=== PATIENT | female | born 1970 | race Hispanic/Latino ===

== ENCOUNTER 2022-06-27 15:46 | Emergency (ER) | payer MEDICAID ==
[~2022-06-27] VITALS: Ht 162.6 cm; Wt 86.2 kg
[2022-06-27] MEDS ORDERED: AMOX1TAB16 PO (17:24)
[2022-06-27 17:31] VITALS: BP 135/99
== END 2022-06-27 17:36 | disposition home or self-care (01) ==
LOC: EDH 15:46
DX: J02.0 Streptococcal pharyngitis (principal); I10 Essential (primary) hypertension; J45.909 Unspecified asthma, uncomplicated; E11.9 Type 2 diabetes mellitus without complications; Z20.822 Contact with and (suspected) exposure to COVID-19; Z90.49 Acquired absence of other specified parts of digestive tract; Z98.890 Other specified postprocedural states
CPT/HCPCS: 99284; 71046; 87635; 87880; 87804 ×2; C9803

== ENCOUNTER 2022-07-02 16:02 | Emergency (ER) | payer MEDICAID ==
[~2022-07-02] VITALS: Ht 162.6 cm; Wt 86.2 kg
[~2022-07-02 16:02] MED LIST: AMOX1TAB16 PO
[2022-07-02 18:00] LABS: BASOPHILS % (AUTO) 0.6 % (0.0-5.0); EOSINOPHILS % (AUTO) 0.8 % (0.0-8.0); HEMATOCRIT 37.2 % (36-48); LYMPHOCYTES % (AUTO) 20.6 % (21.0-51.0); MEAN CORPUSCULAR HEMOGLOBIN 28.2 pg (27.0-33.0); MEAN CORPUSCULAR HGB CONC 33.1 g/dL (32.0-36.0); MEAN CORPUSCULAR VOLUME 85.3 fL (79-99); NEUTROPHILS % (AUTO) 71.6 % (40.0-77.0); PLATELET COUNT (AUTO) 362 K/uL (130-400); RED BLOOD CELL COUNT(AUTO) 4.36 MIL/uL (4.00-5.50); WHITE BLOOD COUNT (AUTO) 10.9 K/uL (4.8-10.8)
[2022-07-02 18:12] LABS: ALBUMIN 4.1 g/dL (3.5-5.0); CREATININE 0.9 mg/dL (0.5-1.5); TOTAL PROTEIN, SERUM 8.7 g/dL (6.0-8.3)
[2022-07-02 18:15] LABS: POTASSIUM 2.8 mmol/L (3.5-5.1)
[2022-07-02] MEDS ORDERED: POTASSIUM BICARB/CIT AC 25 MEQ TABLET.EFF PO STA (18:28)
[2022-07-02] MEDS ORDERED: KETOROLAC 30MG VIAL (30MG/ML) IM STA (18:31)
[2022-07-02] MEDS ORDERED: CEPH500B PO (18:39)
[2022-07-02] MEDS ORDERED: KETO10TA2 PO (18:39)
[2022-07-02] MEDS ORDERED: TAMS-1 PO (18:39)
[2022-07-02 18:42] VITALS: BP 135/89
[2022-07-02 18:44] LABS: APPEARANCE,URINE CLEAR (CLEAR); BILIRUBIN,URINE NEGATIVE (NEGATIVE); COLOR,URINE LIGHT-YELLOW (YELLOW); GLUCOSE, URINE (UA) NEGATIVE (NEGATIVE); KETONES,URINE NEGATIVE (NEGATIVE); LEUKOCYTE ESTERASE ,URINE 25 Leu/uL (NEGATIVE); NITRATE,URINE NEGATIVE (NEGATIVE); OCCULT BLOOD,URINE NEGATIVE (NEGATIVE); PH,URINE 5.5 (5.0-8.0); PROTEIN,URINE NEGATIVE (NEGATIVE); UROBILINOGEN,URINE 0.2 mg/dL (0.2-1.0)
[2022-07-02 18:48] LABS: BACTERIA,URINE RARE /HPF (None Seen); MUCUS,URINE RARE LPF (None Seen); SQUAMOUS EPITHELIAL CELL,UR FEW /HPF (0-2)
== END 2022-07-02 18:47 | disposition left against medical advice (07) ==
LOC: EDH 16:02
DX: N20.0 Calculus of kidney (principal); J45.909 Unspecified asthma, uncomplicated; I10 Essential (primary) hypertension; E11.9 Type 2 diabetes mellitus without complications; Z90.49 Acquired absence of other specified parts of digestive tract
CPT/HCPCS: 99284; 74176; 80053; 83690; 85025; 81001; 36415; 96372; J1885

== ENCOUNTER 2023-04-04 11:29 | Emergency (ER) | payer MEDICAID ==
[~2023-04-04] VITALS: Ht 162.6 cm; Wt 76.2 kg
[~2023-04-04 11:29] MED LIST changes: +CEPH500B PO; +KETO10TA2 PO; +TAMS-1 PO
[2023-04-04] MEDS ORDERED: ONDANSETRON 4MG INJ IVP ONE (12:30)
[2023-04-04] MEDS ORDERED: KETOROLAC 30MG VIAL (30MG/ML) IVP ONE (12:30)
[2023-04-04] MEDS ORDERED: 0.9%NACL 1000ML 1,000 ML IV ONE (12:30)
[2023-04-04 12:48] LABS: BASOPHILS # (AUTO) 0.07 K/uL (0.00-0.20); BASOPHILS % (AUTO) 0.9 % (0.0-5.0); EOSINOPHILS # (AUTO) 0.14 K/uL (0.00-0.70); EOSINOPHILS % (AUTO) 1.8 % (0.0-8.0); HEMATOCRIT 36.6 % (36-48); IMMATURE GRANULOCYTE ABSOLUTE 0.02 K/uL (0-1); LYMPHOCYTES # (AUTO) 2.1 K/uL (1.0-4.8); LYMPHOCYTES % (AUTO) 27.1 % (21.0-51.0); MEAN CORPUSCULAR HEMOGLOBIN 28.5 pg (27.0-33.0); MEAN CORPUSCULAR HGB CONC 33.1 g/dL (32.0-36.0); MEAN CORPUSCULAR VOLUME 86.3 fL (79-99); MONOCYTES # (AUTO) 0.4 K/uL (0.1-1.0); NEUTROPHILS # (AUTO) 5.1 K/uL (1.8-7.7); NEUTROPHILS % (AUTO) 64.9 % (40.0-77.0); PLATELET COUNT (AUTO) 355 K/uL (130-400); RED BLOOD CELL COUNT(AUTO) 4.24 MIL/uL (4.00-5.50); WHITE BLOOD COUNT (AUTO) 7.8 K/uL (4.8-10.8)
[2023-04-04 12:56] LABS: CREATININE 0.7 mg/dL (0.5-1.5); POTASSIUM 3.7 mmol/L (3.5-5.1)
[2023-04-04 13:00] LABS: APPEARANCE,URINE CLEAR (CLEAR); BILIRUBIN,URINE NEGATIVE (NEGATIVE); COLOR,URINE YELLOW (YELLOW); GLUCOSE, URINE (UA) NEGATIVE (NEGATIVE); KETONES,URINE NEGATIVE (NEGATIVE); LEUKOCYTE ESTERASE ,URINE NEGATIVE Leu/uL (NEGATIVE); NITRATE,URINE NEGATIVE (NEGATIVE); OCCULT BLOOD,URINE NEGATIVE (NEGATIVE); PROTEIN,URINE NEGATIVE (NEGATIVE); UROBILINOGEN,URINE 0.2 mg/dL (0.2-1.0)
[2023-04-04 13:00] LABS: ALBUMIN 3.9 g/dL (3.5-5.0); BILIRUBIN,TOTAL 0.7 mg/dL (0.2-1.0); TOTAL PROTEIN, SERUM 8.5 g/dL (6.0-8.3)
[2023-04-04 13:10] LABS: ADD UA MICROSCOPIC NO
[2023-04-04 13:48] VITALS: BP 110/77; PULSE 72; RESP 16; O2SAT 100
== END 2023-04-04 14:19 | disposition home or self-care (01) ==
LOC: EDH 11:29
DX: N20.0 Calculus of kidney (principal); I10 Essential (primary) hypertension; E11.9 Type 2 diabetes mellitus without complications; J45.909 Unspecified asthma, uncomplicated; Z90.49 Acquired absence of other specified parts of digestive tract; Z79.899 Other long term (current) drug therapy; Z98.890 Other specified postprocedural states
CPT/HCPCS: 99285; 74176; 96374; 96361; 96375; 80053; 85025; 81003; 36415; J7030; J2405; J1885

== ENCOUNTER 2023-12-03 11:04 | Emergency (ER) | payer MEDICAID ==
[~2023-12-03] VITALS: Ht 162.6 cm; Wt 81.2 kg
[2023-12-03 11:45] VITALS: BP 163/88; PULSE 91; RESP 18; O2SAT 97
[2023-12-03] MEDS ORDERED: AMOX1TAB16 PO (12:48)
[2023-12-03] MEDS: DEXAMETHASONE SOD PHOSPHATE 4 MG/ML 1ML VIAL IM STA (12:48)
== END 2023-12-03 13:00 | disposition home or self-care (01) ==
LOC: EDH 11:04
DX: J02.0 Streptococcal pharyngitis (principal); F41.9 Anxiety disorder, unspecified; J45.909 Unspecified asthma, uncomplicated; E11.9 Type 2 diabetes mellitus without complications; E78.00 Pure hypercholesterolemia, unspecified; I10 Essential (primary) hypertension; Z90.49 Acquired absence of other specified parts of digestive tract; Z98.51 Tubal ligation status
CPT/HCPCS: 99283; 87880; 96372; J1100

== ENCOUNTER 2024-03-30 11:29 | Emergency (ER) | payer MEDICAID ==
[~2024-03-30] VITALS: Ht 162.6 cm; Wt 77.1 kg
[2024-03-30] MEDS: ketOROlac 60 MG VIAL (30MG/ML) IM ONE (13:20)
[2024-03-30 13:38] VITALS: BP 135/87; PULSE 78; RESP 20; TEMP 98.7; O2SAT 99
== END 2024-03-30 13:47 | disposition home or self-care (01) ==
LOC: EDH 11:29
DX: S40.012A Contusion of left shoulder, initial encounter (principal); E11.9 Type 2 diabetes mellitus without complications; E78.00 Pure hypercholesterolemia, unspecified; I10 Essential (primary) hypertension; J45.909 Unspecified asthma, uncomplicated; F41.9 Anxiety disorder, unspecified; Z90.49 Acquired absence of other specified parts of digestive tract; Z98.51 Tubal ligation status
CPT/HCPCS: 99284; 73060; 73030; 96372; J1885

== ENCOUNTER 2024-10-23 19:01 | Emergency (ER) | payer MEDICAID ==
[~2024-10-23] VITALS: Ht 167.6 cm; Wt 72.6 kg
[~2024-10-23 19:01] MED LIST changes: -TAMS-1 PO; +TAMS-55 PO
--- NOTE | 2024-10-23 19:12 | NUR ---
UA CUP PROVIDED
--- NOTE | 2024-10-23 19:33 | ERN ---
ED Note History of Present Illness Stated Complaint: HBP, HEAD PAIN,DIZZINESS Chief Complaint: Dizzy/Light Headed Time Seen by MD: 19:02 Time Seen by Midlevel: 19:02 Dictation: The patient is a 54-year-old female with a history of diabetes, hypertension, tubal ligation who presents to the emergency department with complaints of headache, dizziness onset a week ago. Patient also reports that she had a fever on Saturday but denies any more fevers, reports nausea but no vomiting, denies any cough, sore throat, ear pain, diarrhea, abdominal pain, head trauma or use of blood thinners. Allergies: Coded Allergies: No Known Allergies (Unverified Allergy, Unknown, 06/27/22) Home Meds Active Scripts Amoxicillin/Potassium Clav (Amox Tr-K Clv 875-125 mg Tab) 875 Mg-125 Mg Tablet, 1 EACH PO BID for 5 Days, #10 TAB Prov:MARYANN VU WIRE HANGER 12/03/23 Cephalexin Monohydrate (Keflex) 500 Mg Cap, 500 MG PO BID for 5 Days, #10 CAP Prov:CARIDAD STREET MD 07/02/22 Tamsulosin HCl (Flomax) 0.4 Mg Cap.er.24h, 0.4 MG PO DAILY for 5 Days, #5 CAPSULE.DR Prov:CARIDAD STRE[address] MD 07/02/22 Ketorolac Tromethamine (Ketorolac Tromethamine) 10 Mg Tablet, 10 MG PO TID for 5 Days, #15 TAB Prov:CARIDAD STREET MD 07/02/22 Amoxicillin/Potassium Clav (Amox Tr-K Clv 875-125 mg Tab) 1 Each Tablet, 1 EACH PO BID for 10 Days, #20 TAB Prov:NIC ZEPEDA V HOSTING ENGINEER 06/27/22 Past Medical History Past Medical History: Anxiety, Asthma, Diabetes-Type II, High Cholesterol, Hypertension Additional Past Medical Hx: 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, HX OF UTERINE CA Surgical History: Appendectomy, Cholecystectomy, Other, BTL Surgical History Other: VARICOSE VEINS, MAT VATS Family History: Negative Social History: Negative, Lives with family History: Not Applicable RN Note Reviewed/Agreed w/PFSH: Yes Review of System Dictation Constitutional: Negative for fever,chills, and weight loss Eyes: Negative for injury, pain,redness, and discharge ENT: Negative for injury,pain or swelling Cardiovascular: Negative for chest pain, palpitations, and edema Respiratory: Negative for shortness of breath, cough, and wheezing, Abdomen/GI: Negative for abdominal pain, nausea, vomiting, diarrhea, and constipation Back: Negative for injury and pain : Negative for injury, bleeding and discharge MS/Extremity: Negative for injury and deformity Skin: Negative for rash, and discoloration Neuro: Negative for weakness, numbness, tingling, and seizure positive for headache, dizziness Psych: Negative for suicide ideation, homicidal ideation, and hallucinations Initial Vital Sign VS Vital Signs Date Time Temp Pulse Resp B/P (MAP) Pulse Ox O2 Delivery O2 Flow Rate FiO2 10/23/24 19:02 98.4 86 20 162/100 98 Room Air 10/23/24 19:26 0 21 Physical Exam Dictation Vital Signs reviewed General Appearance: Alert, oriented x 3, no acute distress, well developed, nourished. Head and Face: non-traumatic. Eyes: PERRL, pink conjunctivas, eyelid no trauma, anterior chamber with arcus senilis. Ears: Pinnas intact and no signs of trauma or erythema ear canals clear and no discharge TM no erythema Nose: No discharge, no bleeding. Oropharynx: Mouth normal, tongue pink. pharynx clear,no erythema, tonsils no exudates, no abscesses noted, mucous membrane moist Neck: Supple, non-tender, no thyromegaly, no masses, no JVD, no bruits Breast:Deferred Chest:No tenderness, no crepitus, no paradoxical movement, no retractions Lungs:Clear, well-ventilated, symmetric, no rales, no wheezing, no rhonchi, no stridor, good breath sounds bilaterally Heart: Regular rate, regular rhythm, no murmur, no gallops Vascular: no peripheral edema, Abdomen: Soft, positive bowel sounds, nondistended, no guarding, nontender, no rebound, no masses no hepatomegaly, no splenomegaly, no Jane's sign, no hernias. Rectal: Deferred Genital: Deferred Neurological: Normal speech, motor function intact, sensory function intact , upper extremities equal in strength, lower extremities equal in strength Musculoskeletal: Neck nontender, full range of motion, back nontender, full range of motion, Extremities: nontender, full range of motion Skin: Color pink, dry, no turgor, no rash, no lacerations, no abrasions, no contusions. Lymphatic: Deferred Results (Laboratory/Radiology) Laboratory/Radiology Laboratory Tests Test 10/23/24 19:19 10/23/24 19:50 10/23/24 19:55 Urine Color YELLOW (YELLOW) Urine Appearance CLOUDY (CLEAR) H Urine pH 5.5 (5.0-8.0) Urine Specific [place] 1.027 (1.001-1.031) Urine Protein 20 mg/dL (NEGATIVE) H Urine Glucose (UA) NEGATIVE mg/dL (NEGATIVE) Urine Ketones NEGATIVE mg/dL (NEGATIVE) Urine Occult Blood NEGATIVE (NEGATIVE) Urine Nitrate NEGATIVE (NEGATIVE) Urine Bilirubin NEGATIVE mg/dL (NEGATIVE) Urine Urobilinogen 0.2 mg/dL (0.2-1.0) Urine Leukocyte Esterase 75 Gavin/uL (NEGATIVE) H Urine RBC 2-5 /HPF (0-1) H Urine WBC 11-25 /HPF (0-1) H Urine Squamous Epithelial Cells FEW /HPF (0-2) Urine Bacteria RARE /HPF (None Seen) Urine Hyaline Casts 2-5 /LPF (0-1 /LPF) H Influenza Type A Antigen Negative For Type A Influenza Type B Antigen Negative For Type B SARS-CoV-2 Antigen (Rapid) PRESUMPTIVE NEGATIVE White Blood Count 9.6 K/uL (4.8-10.8) Red Blood Count 4.17 MIL/uL (4.00-5.50) Hemoglobin 12.1 g/dL (12.0-16.0) Hematocrit 36.3 % (36-48) Mean Corpuscular Volume 87.1 fL (79-99) Mean Corpuscular Hemoglobin 29.0 pg (27.0-33.0) Mean Corpuscular Hemoglobin Concent 33.3 g/dL (32.0-36.0) Red Cell Distribution Width 14.6 % (11.0-15.5) Platelet Count 324 K/uL (130-400) Mean Platelet Volume 8.6 fL (7.5-10.5) Immature Granulocyte % (Auto) 0.3 % (0-1) Neutrophils (%) (Auto) 71.9 % (40.0-77.0) Lymphocytes (%) (Auto) 19.7 % (21.0-51.0) L Monocytes (%) (Auto) 6.7 % (3.0-13.0) Eosinophils (%) (Auto) 0.7 % (0.0-8.0) Basophils (%) (Auto) 0.7 % (0.0-5.0) Neutrophils # (Auto) 6.9 K/uL (1.8-7.7) Lymphocytes # (Auto) 1.9 K/uL (1.0-4.8) Monocytes # (Auto) 0.6 K/uL (0.1-1.0) Eosinophils # (Auto) 0.07 K/uL (0.00-0.70) Basophils # (Auto) 0.07 K/uL (0.00-0.20) Absolute Immature Granulocyte (auto 0.03 K/uL (0-1) Nucleated Red Blood Cells 0.0 % (0.0-0.19) Sodium Level 136 mmol/L (136-145) Potassium Level 3.1 mmol/L (3.5-5.1) L Chloride Level 97 mmol/L (101-111) L Carbon Dioxide Level 34 mmol/L (21-32) H Blood Urea Nitrogen 39 mg/dL (7-18) H Creatinine 0.9 mg/dL (0.5-1.0) Glomerular Filtration Rate Calc 76 mL/min (>90) Random Glucose 93 mg/dL (70-105) Total Calcium 9.1 mg/dL (8.5-10.1) Magnesium Level 2.20 mg/dL (1.80-2.40) Total Creatine Kinase 65 U/L (21-232) Troponin I High Sensitivity < 4.0 ng/L (4-50) L B-Type Natriuretic Peptide < 5 pg/mL (0-100) REASON: dizzy, headache ORDERING PHYSICIAN: JEANETTE ZELAYA PROCEDURE: HEAD WO - CT HEAD/BRAIN W/O CONTRAST CT HEAD/BRAIN W/O CONTRAST HISTORY: Dizziness COMPARISON: None TECHNIQUE: Multiple sequential axial images of the head were obtained from the base of the skull through vertex. Patient was not given contrast through intravenous route. FINDINGS: The ventricles and extraventricular CSF spaces are nondilated for patient's age. There is no midline shift, mass effect or herniation. No acute intracranial bleed is seen. Bilateral ethmoid and maxillary sinusitis and bilateral otomastoiditis are seen. IMPRESSION: 1. No acute intracranial bleed is seen. CT was performed with one or more following dose reduction techniques: automated exposure control, adjustment of the mA and kv according to patient's size, or use of a iterative reconstruction technique. REASON: dizzy ORDERING PHYSICIAN: JEANETTE ZELAYA HOSTING ENGINEER PROCEDURE: CXR1VW - CHEST 1VW CHEST 1VW HISTORY: Dizziness COMPARISON: 06/27/2022 FINDINGS: A frontal projection of the chest was obtained. No acute pulmonary infiltrates is seen. The heart is normal in size. Prominent interstitial markings are seen. Degenerative changes are seen. No evidence of aortic calcification is seen. IMPRESSION: 1. No acute pulmonary infiltrate is seen. Labs Reviewed?: Yes EKG: (+) rhythm (Sinus rhythm) EKG Comment: Date:10/23/2024 Time:1946 Ventricular rate:86 ID interval:151 QRS duration:88 QT/QTc:364 EKG interpretation: Sinus rhythm Reviewed by ED Attending no STEMI ED Course ED Course Orders Procedure Category Date Status Time Cbc With Differential LAB 10/23/24 Complete 19:25 B-Type Natriuretic LAB 10/23/24 Complete Peptide 19:25 Chest 1vw RAD 10/23/24 Resulted 19:25 12 Lead Ekg Tracing- EKG 10/23/24 Complete Technical 19:25 0.9%Nacl 1000ml (Ns PHA 10/23/24 Complete 1000ml) 19:30 Magnesium LAB 10/23/24 Complete 19:25 Urinalysis Profile LAB 10/23/24 Complete 19:25 Basic Metabolic Panel LAB 10/23/24 Complete 19:25 Orthostatic Vital CPOE 10/23/24 Transmitted Signs 19:25 Meclizine Hcl 25 Mg PHA 10/23/24 Complete (Antivert 25 Mg) 19:30 Ct Head/Brain W/O CT 10/23/24 Resulted Contrast 19:25 Covid19 (Sars Antigen LAB 10/23/24 Complete Rapid) 19:25 Influenza Type A & B, LAB 10/23/24 Complete Rapid 19:25 Cardiac Panel LAB 10/23/24 Complete 19:25 Culture Urine NICOLE 10/23/24 In Process 20:29 Potassium Bicarb/Cit PHA 10/23/24 Complete Ac 25meq (K-Lyte Ta 21:00 Levofloxacin 500mg PHA 10/23/24 Complete Tab (Levaquin 500mg T 21:00 Current Medications Medications (Trade) Dose Ordered Sig/Lakshmi Route PRN Reason Start Time Stop Time Status Last Admin Dose Admin Levofloxacin (LEvaquIN 500MG TAB) 500 mg ONCE ONCE PO 10/23/24 21:00 10/23/24 21:01 DC Meclizine HCl (ANTIvert 25 mg) 25 mg ONCE ONCE PO 10/23/24 19:30 10/23/24 19:31 DC 10/23/24 20:03 Potassium Bicarbonate (K-Lyte Tablet Eff 25 Meq Tablet.eff) 25 meq ONCE ONCE PO 10/23/24 21:00 10/23/24 21:01 DC Sodium Chloride 1,000 ml @ 0 mls/hr ONCE ONCE IV 10/23/24 19:30 10/23/24 19:31 DC 10/23/24 20:03 Vital Signs Date Time Temp Pulse Resp B/P (MAP) Pulse Ox O2 Delivery O2 Flow Rate FiO2 10/23/24 20: 98.1 80 18 123/76 96 Room Air* 0 21 10/23/24 19:26 98.1 90 20 109/80 98 Room Air* 0 21 10/23/24 19:02 98.4 86 20 162/100 98 Room Air Medical Decision Making MDM The patient is a 54-year-old female with a history of diabetes, hypertension, tubal ligation who presents to the emergency department with complaints of headache, dizziness onset a week ago. Patient also reports that she had a fever on Saturday but denies any more fevers, reports nausea but no vomiting, denies any cough, sore throat, ear pain, diarrhea, abdominal pain, head trauma or use of blood thinners. CBC showed no leukocytosis, no anemia, chemistry showed mild hypokalemia, mild hypochloremia, negative troponin, negative CK level GFR of 76. Patient received a L of IV fluids and potassium in ER. Patient with no nausea or vomiting, no diarrhea. Urinalysis positive for leukocyte esterase, serology negative, x-ray showed no acute infiltrates, CT head showed no acute intracranial bleed, bilateral sinusitis. Patient reports improving in dizziness with medication. We will treat with antibiotics for a urinary tract infection and sinusitis. Patient with no fever, no elevated white, no erythema to bilateral ear canals or tympanic membranes. Patient continues neurologically intact, stable vital signs. Differential diagnosis: Dehydration, electrolyte imbalance, tachyarrhythmia, upper respiratory infection Need for hospitalization: Patient does not meet criteria for hospitalization. There are no social concerns with this patient. DX & DISP Disposition: Discharge Departure Impression: Primary Impression: Sinusitis Additional Impressions: Mild dehydration, Hypokalemia, UTI (urinary tract infection), Dizziness Condition: Stable Scripts Levofloxacin (Levofloxacin) 500 Mg Tablet 1 TAB PO DAILY for 10 Days, #10 TAB 0 Refills Prov: JEANETTE ZELAYA 10/23/24 Additional Instructions: Please take your antibiotics as prescribed. If symptoms worsen please return to ER. Follow up with the primary doctor. Continue oral hydration at home. FOLLOW-UP WITH PRIMARY CARE PROVIDER IN 1 TO 2 DAYS. TAKE MEDICATIONS DIRECTED HERE IN THE EMERGENCY ROOM. OKAY TO CONTINUE HOME MEDICATIONS UNLESS OTHERWISE DISCUSSED DURING YOUR VISIT IN THE EMERGENCY ROOM TODAY. RETURN TO YOUR NEAREST EMERGENCY ROOM IF SYMPTOMS WORSEN OR IF THERE IS NO IMPROVEMENT. CALL 911 IF YOU NEED IMMEDIATE ASSISTANCE. TAKE TYLENOL OR MOTRIN JHLA-ESA-HCLDOHA NEEDED AND IF NO CONTRAINDICATIONS ARE PRESENT. INCREASE ORAL HYDRATION. A WOUND CULTURE OR URINE CULTURE WAS ORDERED HERE IN THE EMERGENCY ROOM DEPARTMENT PLEASE FOLLOW-UP WITH PRIMARY CARE PROVIDER AND ADVISE THEM TO GET REPEAT PORTS FROM OUR FACILITY. IF YOU HAD ANY AMAYA WRAP/SPLINTS THAT WERE APPLIED HERE, PLEASE DO NOT REMOVE THEM UNTIL YOU SEE YOUR PRIMARY CARE OR SPECIALTY. Referrals: SELF,REFERRAL (PCP) Time of Disposition: 21:08 I have reviewed the case, and I agree with, Diagnosis and Plan JEANETTE ZELAYA Oct 23, 2024 19:33
--- NOTE | 2024-10-23 19:43 | NUR ---
PATIENT STATES SHE HAS BEEN FEELING DIZZY X 1 WEEK, DENIES NAUSEA, DENIES VOMITING, DENIES DIARRHEA, PATIENT DOES HAVE STEADY GAIT, PATIENT ALSO COMPALINS OF FRONTAL AND OCCIPITAL HEADACHE
--- NOTE | 2024-10-23 19:49 | EKG ---
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
--- NOTE | 2024-10-23 20:00 | HMCIMG ---
CT HEAD/BRAIN W/O CONTRAST HISTORY: Dizziness COMPARISON: None TECHNIQUE: Multiple sequential axial images of the head were obtained from the base of the skull through vertex. Patient was not given contrast through intravenous route. FINDINGS: The ventricles and extraventricular CSF spaces are nondilated for patient's age. There is no midline shift, mass effect or herniation. No acute intracranial bleed is seen. Bilateral ethmoid and maxillary sinusitis and bilateral otomastoiditis are seen. IMPRESSION: 1. No acute intracranial bleed is seen. CT was performed with one or more following dose reduction techniques: automated exposure control, adjustment of the mA and kv according to patient's size, or use of a iterative reconstruction technique.
[2024-10-23] MEDS: mecliZINE HCL 25 MG TABLET PO ONE (20:03)
[2024-10-23] MEDS: 0.9%NACL 1000ML 1,000 ML IV ONE (20:03)
[2024-10-23 20:04] LABS: BASOPHILS # (AUTO) 0.07 K/uL (0.00-0.20); BASOPHILS % (AUTO) 0.7 % (0.0-5.0); EOSINOPHILS # (AUTO) 0.07 K/uL (0.00-0.70); EOSINOPHILS % (AUTO) 0.7 % (0.0-8.0); HEMATOCRIT 36.3 % (36-48); IMMATURE GRANULOCYTE ABSOLUTE 0.03 K/uL (0-1); LYMPHOCYTES # (AUTO) 1.9 K/uL (1.0-4.8); LYMPHOCYTES % (AUTO) 19.7 % (21.0-51.0); MEAN CORPUSCULAR HGB CONC 33.3 g/dL (32.0-36.0); MEAN CORPUSCULAR VOLUME 87.1 fL (79-99); MONOCYTES # (AUTO) 0.6 K/uL (0.1-1.0); MONOCYTES % (AUTO) 6.7 % (3.0-13.0); NEUTROPHILS # (AUTO) 6.9 K/uL (1.8-7.7); NEUTROPHILS % (AUTO) 71.9 % (40.0-77.0); PLATELET COUNT (AUTO) 324 K/uL (130-400); RED BLOOD CELL COUNT(AUTO) 4.17 MIL/uL (4.00-5.50); RED CELL DISTRIBUTION WIDTH 14.6 % (11.0-15.5); WHITE BLOOD COUNT (AUTO) 9.6 K/uL (4.8-10.8)
[2024-10-23 20:21] LABS: CARBON DIOXIDE 34 mmol/L (21-32); CHLORIDE 97 mmol/L (101-111); CREATININE 0.9 mg/dL (0.5-1.0); GLOMERULAR FILTR. RATE CALC 76 mL/min (>90); GLUCOSE,RANDOM 93 mg/dL (70-105); POTASSIUM 3.1 mmol/L (3.5-5.1); SODIUM SERUM 136 mmol/L (136-145); UREA NITROGEN, BLOOD 39 mg/dL (7-18)
--- NOTE | 2024-10-23 20:24 | HMCIMG ---
CHEST 1VW HISTORY: Dizziness COMPARISON: 06/27/2022 FINDINGS: A frontal projection of the chest was obtained. No acute pulmonary infiltrates is seen. The heart is normal in size. Prominent interstitial markings are seen. Degenerative changes are seen. No evidence of aortic calcification is seen. IMPRESSION: 1. No acute pulmonary infiltrate is seen.
--- NOTE | 2024-10-23 20:25 | NUR ---
PATIENT STATES DIZZNESS IMPROVED. ORTHOSTATIC VITALS FOLLOWS LYING 123/76,SITTING 150/84 85, LYING 159/83.
[2024-10-23 20:26] VITALS: BP 123/76; PULSE 80; RESP 18; TEMP 98; O2SAT 96
[2024-10-23 20:26] LABS: APPEARANCE,URINE CLOUDY (CLEAR); BILIRUBIN,URINE NEGATIVE (NEGATIVE); COLOR,URINE YELLOW (YELLOW); GLUCOSE, URINE (UA) NEGATIVE (NEGATIVE); KETONES,URINE NEGATIVE (NEGATIVE); LEUKOCYTE ESTERASE ,URINE 75 Leu/uL (NEGATIVE); NITRATE,URINE NEGATIVE (NEGATIVE); OCCULT BLOOD,URINE NEGATIVE (NEGATIVE); PH,URINE 5.5 (5.0-8.0); PROTEIN,URINE 20 mg/dL (NEGATIVE); UROBILINOGEN,URINE 0.2 mg/dL (0.2-1.0)
[2024-10-23 20:27] LABS: COVID19 (SARS ANTIGEN RAPID) PRESUMPTIVE NEGATIVE (NEGATIVE)
[2024-10-23 20:27] LABS: B-TYPE NATRIURETIC PEPTIDE < 5 pg/mL (0-100)
[2024-10-23 20:28] LABS: INFLUENZA TYPE A Negative For Type A (NEGATIVE); INFLUENZA TYPE B Negative For Type B (NEGATIVE)
[2024-10-23 20:28] LABS: CREATINE KINASE, TOTAL 65 U/L (21-232)
[2024-10-23 20:29] LABS: ADD UA MICROSCOPIC YES
[2024-10-23 20:34] LABS: BACTERIA,URINE RARE /HPF (None Seen); MUCUS,URINE FEW LPF (None Seen); SQUAMOUS EPITHELIAL CELL,UR FEW /HPF (0-2)
[2024-10-23] MEDS ORDERED: PoTASSium BIcarbonate/CIT AC 25 MEQ TABLET.EFF PO ONE (21:00)
[2024-10-23] MEDS ORDERED: levoFLOXacin 500 MG TABLET PO ONE (21:00)
[2024-10-23] MEDS ORDERED: LEVO-70 PO (21:10)
== END 2024-10-23 21:39 | disposition home or self-care (01) ==
LOC: EDH 19:01
DX: J32.9 Chronic sinusitis, unspecified (principal); E86.0 Dehydration; N39.0 Urinary tract infection, site not specified; E87.6 Hypokalemia; R42 Dizziness and giddiness; E11.9 Type 2 diabetes mellitus without complications; E78.00 Pure hypercholesterolemia, unspecified; I10 Essential (primary) hypertension; J45.909 Unspecified asthma, uncomplicated; F41.9 Anxiety disorder, unspecified; Z20.822 Contact with and (suspected) exposure to COVID-19; Z90.49 Acquired absence of other specified parts of digestive tract; Z98.51 Tubal ligation status; Z98.890 Other specified postprocedural states
CPT/HCPCS: 99285; 96360; 70450; 71045; 87426; 82550; 83735; 84484; 80048; 83880; 85025; 87086; 87804 ×2; 81001; 36415; 93005; J7030

== ENCOUNTER 2024-11-24 16:32 | Emergency (ER) | payer MEDICAID ==
[~2024-11-24] VITALS: Ht 162.6 cm; Wt 77.1 kg
[~2024-11-24 16:32] MED LIST changes: +LEVO-70 PO
[2024-11-24 16:41] VITALS: BP 137/87; PULSE 91; RESP 20; TEMP 98.8
--- NOTE | 2024-11-24 18:30 | NUR ---
PT MOVED INTO FAST TRACK FROM LOBBY. ASSUMED CARE AT THIS TIME
--- NOTE | 2024-11-24 19:05 | NUR ---
CALLED NO ANSWER IN FAST TRACK OR LOBBY
--- NOTE | 2024-11-24 19:11 | EKG ---
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
--- NOTE | 2024-11-24 19:20 | NUR ---
XRAY CALLED FOR PT NO ANSWER IN FAST TRACK OR LOBBY
--- NOTE | 2024-11-24 19:35 | NUR ---
CALLED PT IN LOBBY AND FAST NO ANSWER
--- NOTE | 2024-11-24 21:10 | ERN ---
ED Note History of Present Illness Stated Complaint: CHEST CONSTRICTED,THROAT IRRITATION Chief Complaint: Sore Throat Time Seen by MD: 19:52 Time Seen by Midlevel: 20:15 Dictation: The patient is a 54-year-old female with a history of asthma, diabetes who presents to the emergency department with complaints of chest pain, fevers, sore throat, nasal congestion onset today. Patient reports chest pain has now resolved. Allergies: Coded Allergies: No Known Allergies (Unverified Allergy, Unknown, 06/27/22) Home Meds Active Scripts Levofloxacin (Levofloxacin) 500 Mg Tablet, 1 TAB PO DAILY for 10 Days, #10 TAB 0 Refills Prov:JEANETTE ZELAYA AUTISM TUTOR 10/23/24 Amoxicillin/Potassium Clav (Amox Tr-K Clv 875-125 mg Tab) 875 Mg-125 Mg Tablet, 1 EACH PO BID for 5 Days, #10 TAB Prov:MARYANN VU CEMENT GRINDING MILL OPERATOR 12/03/23 Cephalexin Monohydrate (Keflex) 500 Mg Cap, 500 MG PO BID for 5 Days, #10 CAP Prov:CARIDAD STREET MD 07/02/22 Tamsulosin HCl (Flomax) 0.4 Mg Cap.er.24h, 0.4 MG PO DAILY for 5 Days, #5 CAPSULE.DR Prov:CARIDAD STREET MD 07/02/22 Ketorolac Tromethamine (Ketorolac Tromethamine) 10 Mg Tablet, 10 MG PO TID for 5 Days, #15 TAB Prov:CARIDAD STREET MD 07/02/22 Amoxicillin/Potassium Clav (Amox Tr-K Clv 875-125 mg Tab) 1 Each Tablet, 1 EACH PO BID for 10 Days, #20 TAB Prov:NIC ZEPEDA V AUTISM TUTOR 06/27/22 Past Medical History Past Medical History: Asthma, Diabetes-Type II, Hypertension Additional Past Medical Hx: 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, HX OF UTERINE CA Surgical History: Appendectomy, Cholecystectomy Surgical History Other: KIDNEY SX, Family History: Negative Social History: Negative, Lives with family History: Not Applicable RN Note Reviewed/Agreed w/PFSH: Yes Review of System Dictation Constitutional: Negative for fever,chills, and weight loss Eyes: Negative for injury, pain,redness, and discharge ENT: Negative for injury,pain or swelling positive for sore throat Cardiovascular: Negative for palpitations, and edema positive for chest pain Respiratory: Negative for shortness of breath, cough, and wheezing, Abdomen/GI: Negative for abdominal pain, nausea, vomiting, diarrhea, and constipation Back: Negative for injury and pain : Negative for injury, bleeding and discharge MS/Extremity: Negative for injury and deformity Skin: Negative for rash, and discoloration Neuro: Negative for headache, weakness, numbness, tingling, and seizure Psych: Negative for suicide ideation, homicidal ideation, and hallucinations Initial Vital Sign VS Vital Signs Date Time Temp Pulse Resp B/P (MAP) Pulse Ox O2 Delivery O2 Flow Rate FiO2 11/24/24 16:41 98.8 91 20 137/87 Room Air Physical Exam Dictation Vital Signs reviewed General Appearance: Alert, oriented x 3, no acute distress, well developed, nourished. Head and Face: non-traumatic. Eyes: PERRL, pink conjunctivas, eyelid no trauma, anterior chamber with arcus senilis. Ears: Pinnas intact and no signs of trauma or erythema ear canals clear and no discharge TM no erythema Nose: No discharge, no bleeding. Oropharynx: Mouth normal, tongue pink. pharynx clear,no erythema, tonsils no exudates, no abscesses noted, mucous membrane moist Neck: Supple, non-tender, no thyromegaly, no masses, no JVD, no bruits Breast:Deferred Chest:No tenderness, no crepitus, no paradoxical movement, no retractions Lungs:Clear, well-ventilated, symmetric, no rales, no wheezing, no rhonchi, no stridor, good breath sounds bilaterally Heart: Regular rate, regular rhythm, no murmur, no gallops Vascular: no peripheral edema, Abdomen: Soft, positive bowel sounds, nondistended, no guarding, nontender, no rebound, no masses no hepatomegaly, no splenomegaly, no Jane's sign, no hernias. Rectal: Deferred Genital: Deferred Neurological: Normal speech, motor function intact, sensory function intact Musculoskeletal: Neck nontender, full range of motion, back nontender, full range of motion, Extremities: nontender, full range of motion Skin: Color pink, dry, no turgor, no rash, no lacerations, no abrasions, no contusions. Lymphatic: Deferred Results (Laboratory/Radiology) Labs Reviewed?: Yes ED Course ED Course Orders Procedure Category Date Status Time 12 Lead Ekg Tracing- EKG 11/24/24 Complete Technical 19:02 Covid19 (Sars Antigen LAB 11/24/24 Logged Rapid) 19:10 Influenza Type A & B, LAB 11/24/24 Logged Rapid 19:10 Rapid (Group A Strep) LAB 11/24/24 Logged 19:10 Vital Signs Date Time Temp Pulse Resp B/P (MAP) Pulse Ox O2 Delivery O2 Flow Rate FiO2 11/24/24 16:41 98.8 91 20 137/87 Room Air Medical Decision Making MDM The patient is a 54-year-old female with a history of asthma, diabetes who presents to the emergency department with complaints of chest pain, fevers, sore throat, nasal congestion onset today. Patient reports chest pain has now resolved. Differential diagnosis: Respiratory infection, ACS, pneumothorax, pneumonia Was informed by the ER staff that patient eloped from ER DX & DISP Disposition: AMA Departure Condition: Stable Referrals: JILL PADILLA MD (PCP) I have reviewed the case, and I agree with, Diagnosis and Plan JEANETTE ZELAYA AUTISM TUTOR November 24, 2024 21:10
--- NOTE | 2024-11-24 21:26 | NUR ---
CALLED FOR PT IN LOBBY. NO RESPONSE; PT NOT FOUND IN LOBBY OR FAST TRACK.
== END 2024-11-24 20:24 | disposition left against medical advice (07) ==
LOC: EDH 16:32
DX: R07.89 Other chest pain (principal); J02.9 Acute pharyngitis, unspecified; R50.9 Fever, unspecified; E11.9 Type 2 diabetes mellitus without complications; I10 Essential (primary) hypertension; J45.909 Unspecified asthma, uncomplicated; Z90.49 Acquired absence of other specified parts of digestive tract
CPT/HCPCS: 93005; 99283

== ENCOUNTER 2025-06-16 12:29 | Emergency (ER) | payer MEDICAID ==
[~2025-06-16] VITALS: Ht 162.6 cm; Wt 79.4 kg
[2025-06-16 13:11] LABS: APPEARANCE,URINE CLEAR (CLEAR); GLUCOSE, URINE (UA) NEGATIVE (NEGATIVE); LEUKOCYTE ESTERASE ,URINE 75 Leu/uL (NEGATIVE); NITRATE,URINE NEGATIVE (NEGATIVE); OCCULT BLOOD,URINE NEGATIVE (NEGATIVE)
[2025-06-16 13:15] LABS: IMMATURE GRANULOCYTE ABSOLUTE 0.02 K/uL (0-1); NUCLEATED RED BLOOD CELLS 0.0 % (0.0-0.19); PLATELET COUNT (AUTO) 342 K/uL (130-400); RED BLOOD CELL COUNT(AUTO) 4.26 MIL/uL (4.00-5.50); RED CELL DISTRIBUTION WIDTH 14.0 % (11.0-15.5); WHITE BLOOD COUNT (AUTO) 5.6 K/uL (4.8-10.8)
[2025-06-16 13:23] LABS: CREATININE 0.6 mg/dL (0.5-1.0); GLOMERULAR FILTR. RATE CALC 107.0 mL/min (>90); GLUCOSE,RANDOM 89.0 mg/dL (70-105); SODIUM SERUM 140.0 mmol/L (136-145); UREA NITROGEN, BLOOD 12.0 mg/dL (7-18)
[2025-06-16 13:31] LABS: ADD UA MICROSCOPIC YES
[2025-06-16 13:37] LABS: SQUAMOUS EPITHELIAL CELL,UR FEW /HPF (0-2)
--- NOTE | 2025-06-16 14:29 | HMCIMG ---
EXAM: CT Abdomen and Pelvis Without IV contrast CLINICAL HISTORY: r flank pain TECHNIQUE: Axial computed tomography images of the abdomen and pelvis without intravenous contrast. CONTRAST: No IV contrast. COMPARISON: None provided. FINDINGS: LUNG BASES: A few nodular infiltrates along the left lower lobe with a few adjacent parenchymal bands. LIVER: The liver is enlarged in size, with the right hepatic lobe measuring up to 17.3 cm. GALLBLADDER AND BILE DUCTS: Post-cholecystectomy status. PANCREAS: Unremarkable. SPLEEN: Unremarkable. ADRENAL GLANDS: Unremarkable. KIDNEYS, URETERS, AND BLADDER: A small 2 mm concretion along the mid-pole of right kidney. There is no hydronephrosis or hydroureter. No urinary calculi are seen. STOMACH AND BOWEL: There is mild submucosal fat proliferation involving the distal ascending colon and cecum. No associated wall thickening, pericolic fat stranding, or adjacent fluid collection is identified. The findings are non-specific and may be seen with chronic or prior inflammatory changes. Colonic diverticulosis without diverticulitis. Unremarkable appearance of the stomach. APPENDIX: No evidence of acute appendicitis on CT examination. PERITONEUM: No free fluid. No free air. LYMPH NODES: No lymphadenopathy is evident. REPRODUCTIVE: Unremarkable as visualized. VASCULATURE: No evidence of abdominal aortic aneurysm. BONES: Degenerative changes along visualized spine. IMPRESSION: 1. No acute intraabdominal or pelvic pathology. 2. Hepatomegaly with right hepatic lobe measuring up to 17.3 cm. 3. Left lower lobe nodular infiltrates with adjacent parenchymal bands. /[place]
[2025-06-16] MEDS ORDERED: KETO10TA2 PO (15:05)
[2025-06-16] MEDS ORDERED: LIDO1ADH82 TP (15:05)
--- NOTE | 2025-06-16 15:06 | ERN ---
ED Note History of Present Illness Stated Complaint: RIGHT FLANK PAIN Chief Complaint: Flank Pain Time Seen by MD: 12:31 Time Seen by Midlevel: 12:34 Dictation: 55-year-old female with a history of hypertension, diabetes and cholesterol coming in with complaining of right flank pain. Patient states it hurts when she does any movement, or takes a deep breath. Patient states he does have a history of kidney stones. Hematuria dysuria. Denies any recent fever, nausea vomiting cough congestion. Allergies: Coded Allergies: No Known Allergies (Unverified Allergy, Unknown, 06/27/22) Home Meds Active Scripts Levofloxacin (Levofloxacin) 500 Mg Tablet, 1 TAB PO DAILY for 10 Days, #10 TAB 0 Refills Prov:JEANETTE ZELAYA [employer]ST ENGINEER 10/23/24 Amoxicillin/Potassium Clav (Amox Tr-K Clv 875-125 mg Tab) 875 Mg-125 Mg Tablet, 1 EACH PO BID for 5 Days, #10 TAB Prov:MARYANN VU PUMP INSTALLER 12/03/23 Cephalexin Monohydrate (Keflex) 500 Mg Cap, 500 MG PO BID for 5 Days, #10 CAP Prov:CARIDAD STREET MD 07/02/22 Tamsulosin HCl (Flomax) 0.4 Mg Cap.er.24h, 0.4 MG PO DAILY for 5 Days, #5 CAPSULE.DR Prov:CARID[address]RE[address] MD 07/02/22 Ketorolac Tromethamine (Ketorolac Tromethamine) 10 Mg Tablet, 10 MG PO TID for 5 Days, #15 TAB Prov:CARIDAD STREET MD 07/02/22 Amoxicillin/Potassium Clav (Amox Tr-K Clv 875-125 mg Tab) 1 Each Tablet, 1 EACH PO BID for 10 Days, #20 TAB Prov:NIC ZEPEDA [facility] 06/27/22 Past Medical History Past Medical History: Asthma, Diabetes-Type II, Hypertension Additional Past Medical Hx: 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, HX OF UTERINE CA Surgical History: Appendectomy, Cholecystectomy Surgical History Other: KIDNEY SX, Family History: Negative Social History: Negative, Lives with family History: Not Applicable Review of System Dictation Constitutional: Negative for fever,chills, and weight loss Eyes: Negative for injury, pain,redness, and discharge ENT: Negative for injury,pain or swelling Cardiovascular: Negative for chest pain, palpitations, and edema Respiratory: Negative for shortness of breath, cough, and wheezing, Abdomen/GI: Negative for abdominal pain, nausea, vomiting, diarrhea, and constipation, complaining of right flank pain Back: Negative for injury and pain : Negative for injury, bleeding and discharge MS/Extremity: Negative for injury and deformity Skin: Negative for rash, and discoloration Neuro: Negative for headache, weakness, numbness, tingling, and seizure Psych: Negative for suicide ideation, homicidal ideation, and hallucinations Review of Systems: was completed Initial Vital Sign VS Vital Signs Date Time Temp Pulse Resp B/P (MAP) Pulse Ox O2 Delivery O2 Flow Rate FiO2 06/16/25 12:31 98.1 77 16 122/100 98 Room Air Physical Exam Dictation General: awake, alert, NAD Head/Face: Normocephalic, atraumatic Eyes: PERRL, EOMI, vision at baseline ENT: oral cavity clear, TMs clear, no signs of infection Neck: Trachea midline, supple, no nuchal rigidity Cardiovascular: RRR, normal S1/S2, No MRGs, no JVD Respiratory: CTAB, no respiratory distress, No rales or wheezes Abdomen: Soft, non-tender, non-distended, normal bowel sounds, no guarding or rebound., no CVA tenderness Skin: Warm, dry, normal turgor, no rash MS/Extremity: Pulses equal, no cyanosis, neurovascular intact, FROM Neuro: COAx4, GCS 15, strength 5/5, CN 2-12 intact, normal cerebellar exam, normal gait, Psych: Normal behavior, mood, and affect normal Results (Laboratory/Radiology) Laboratory/Radiology Laboratory Tests Test 06/16/25 12:41 06/16/25 13:00 Urine Color LIGHT-YELLOW (YELLOW) Urine Appearance CLEAR (CLEAR) Urine pH 5.5 (5.0-8.0) Urine Specific [place] 1.017 (1.001-1.031) Urine Protein NEGATIVE mg/dL (NEGATIVE) Urine Glucose (UA) NEGATIVE mg/dL (NEGATIVE) Urine Ketones NEGATIVE mg/dL (NEGATIVE) Urine Occult Blood NEGATIVE (NEGATIVE) Urine Nitrate NEGATIVE (NEGATIVE) Urine Bilirubin NEGATIVE mg/dL (NEGATIVE) Urine Urobilinogen 0.2 mg/dL (0.2-1.0) Urine Leukocyte Esterase 75 Gavin/uL (NEGATIVE) H Urine RBC 0-1 /HPF (0-1) Urine WBC 2-5 /HPF (0-1) H Urine Squamous Epithelial Cells FEW /HPF (0-2) Urine Bacteria None /HPF (None Seen) White Blood Count 5.6 K/uL (4.8-10.8) Red Blood Count 4.26 MIL/uL (4.00-5.50) Hemoglobin 12.4 g/dL (12.0-16.0) Hematocrit 37.8 % (36-48) Mean Corpuscular Volume 88.7 fL (79-99) Mean Corpuscular Hemoglobin 29.1 pg (27.0-33.0) Mean Corpuscular Hemoglobin Concent 32.8 g/dL (32.0-36.0) Red Cell Distribution Width 14.0 % (11.0-15.5) Platelet Count 342 K/uL (130-400) Mean Platelet Volume 8.9 fL (7.5-10.5) Immature Granulocyte % (Auto) 0.4 % (0-1) Neutrophils (%) (Auto) 56.5 % (40.0-77.0) Lymphocytes (%) (Auto) 34.5 % (21.0-51.0) Monocytes (%) (Auto) 6.0 % (3.0-13.0) Eosinophils (%) (Auto) 1.4 % (0.0-8.0) Basophils (%) (Auto) 1.2 % (0.0-5.0) Neutrophils # (Auto) 3.2 K/uL (1.8-7.7) Lymphocytes # (Auto) 1.9 K/uL (1.0-4.8) Monocytes # (Auto) 0.3 K/uL (0.1-1.0) Eosinophils # (Auto) 0.08 K/uL (0.00-0.70) Basophils # (Auto) 0.07 K/uL (0.00-0.20) Absolute Immature Granulocyte (auto 0.02 K/uL (0-1) Nucleated Red Blood Cells 0.0 % (0.0-0.19) Sodium Level 140 mmol/L (136-145) Potassium Level 3.8 mmol/L (3.5-5.1) Chloride Level 104 mmol/L (101-111) Carbon Dioxide Level 30 mmol/L (21-32) Blood Urea Nitrogen 12 mg/dL (7-18) Creatinine 0.6 mg/dL (0.5-1.0) Glomerular Filtration Rate Calc 107 mL/min (>90) Random Glucose 89 mg/dL (70-105) Total Calcium 8.9 mg/dL (8.5-10.1) Labs Reviewed?: Yes CT Scan Comment: [facility] [address] [place] [address] IMAGING REPORT Signed PATIENT: ESEQUIEL CHAN MR#: [id number] : 1970 SEX: F AGE: 55 LOCATION: [facility] ORDER 46 STATUS: REG ER REPORT#: [id number] SERVICE 45 REASON: r flank pain ORDERING PHYSICIAN: MARYANN VU CNP PROCEDURE: ABD PEL WO - CT ABDOMEN/PELVIS W/O CONTRAST EXAM: CT Abdomen and Pelvis Without IV contrast CLINICAL HISTORY: r flank pain TECHNIQUE: Axial computed tomography images of the abdomen and pelvis without intravenous contrast. CONTRAST: No IV contrast. COMPARISON: None provided. FINDINGS: LUNG BASES: A few nodular infiltrates along the left lower lobe with a few adjacent parenchymal bands. LIVER: The liver is enlarged in size, with the right hepatic lobe measuring up to 17.3 cm. GALLBLADDER AND BILE DUCTS: Post-cholecystectomy status. PANCREAS: Unremarkable. SPLEEN: Unremarkable. ADRENAL GLANDS: Unremarkable. KIDNEYS, URETERS, AND BLADDER: A small 2 mm concretion along the mid-pole of right kidney. There is no hydronephrosis or hydroureter. No urinary calculi are seen. STOMACH AND BOWEL: There is mild submucosal fat proliferation involving the distal ascending colon and cecum. No associated wall thickening, pericolic fat stranding, or adjacent fluid collection is identified. The findings are non-specific and may be seen with chronic or prior inflammatory changes. Colonic diverticulosis without diverticulitis. Unremarkable appearance of the stomach. APPENDIX: No evidence of acute appendicitis on CT examination. PERITONEUM: No free fluid. No free air. LYMPH NODES: No lymphadenopathy is evident. REPRODUCTIVE: Unremarkable as visualized. VASCULATURE: No evidence of abdominal aortic aneurysm. BONES: Degenerative changes along visualized spine. IMPRESSION: 1. No acute intraabdominal or pelvic pathology. 2. Hepatomegaly with right hepatic lobe measuring up to 17.3 cm. 3. Left lower lobe nodular infiltrates with adjacent parenchymal bands. /[place] DICTATED BY: LENNOX NOBLE Jr., MD DATE: 06/16/25 1528 ED Course ED Course Orders Procedure Category Date Status Time Cbc With Differential LAB 06/16/25 Complete 12:46 Basic Metabolic Panel LAB 06/16/25 Complete 12:46 Urinalysis Profile LAB 06/16/25 Complete 12:46 Ct Abdomen/Pelvis W/O CT 06/16/25 Resulted Contrast 12:46 Culture Urine NICOLE 06/16/25 In Process 13:31 Ketorolac PHA 06/16/25 Transmitted Tromethamine 15mg/Ml 15:00 Vital Signs Date Time Temp Pulse Resp B/P (MAP) Pulse Ox O2 Delivery O2 Flow Rate FiO2 06/16/25 12:31 98.1 77 16 122/100 98 Room Air Medical Decision Making MDM MDM: 55-year-old female with a history of hypertension, diabetes and cholesterol coming in with complaining of right flank pain. Patient states it hurts when she does any movement, or takes a deep breath. Patient states he does have a history of kidney stones. Hematuria dysuria. Denies any recent fever, nausea vomiting cough congestion. CBC shows no leukocytosis, no anemia, no thrombocytopenia. BMP shows no electrolyte abnormality. Normal kidney function. UA shows no evidence of urinary tract infection. CT scan of the abdomen shows no acute intra-abdominal pelvic pathology. Hepatomegaly and a left lower lobe nodule infiltrate. Discu ssed findings with the patient educated to follow up with her PCP. Gave her two anti-inflammatories here in the ER. Educated on signs and symptoms of when to return back to the ER like fever, hematuria, chest pain, fever nausea or vomiting. Patient verbalized understanding, answered all questions. Differential diagnosis: Kidney stone, musculoskeletal pain, costochondritis Rationale: Tests considered and ordered secondary to shared decision making include: Previous outside records reviewed: Old ER visits. Risk of complication and/or morbidity or mortality of patient management: None Medications-Per medication reconciliation Need for hospitalization: Patient does not meet criteria for hospitalization. Need for emergency major/minor surgery: No There are no social concerns with this patient. Prescription drug management Prescriptions will include symptomatic care Patient's prior external medical records from other ER visits were reviewed by me as indicated. Prior testing and results from previous visits were reviewed. Prior tests were taken into account with medical decision making and resource utilization, independent historian/historians were used to obtain complete medical history. I independently interpreted the test that were performed, results were reviewed by me and considered findings on radiology if ordered. Medical management and examination interpretation discussions were had by me with other qualified healthcare professionals as indicated for the patient's care. DX & DISP Disposition: Discharge Departure Impression: Primary Impression: Musculoskeletal pain Additional Impression: Lung nodule Condition: Stable Scripts Lidocaine (Lidocaine) 4 % Adh..patch 1 PATCH TP DAILY for 10 Days, #10 PATCH 0 Refills Prov: MARYANN VU CNP 06/16/25 Ketorolac Tromethamine (Ketorolac Tromethamine) 10 Mg Tablet 1 TAB PO Q6HPRN PRN for pain for 3 Days, #12 TAB 0 Refills Prov: MARYANN VU CNP 06/16/25 Referrals: JILL PADILLA MD (PCP) Time of Disposition: 15:04 I have reviewed the case, and I agree with, Diagnosis and Plan MARYANN VU CNP Jun 16, 2025 15:06
[2025-06-16 15:34] VITALS: BP 132/80; PULSE 69; RESP 19; TEMP 98.3; O2SAT 99
== END 2025-06-16 15:33 | disposition home or self-care (01) ==
LOC: EDH 12:29
DX: R10.A1 Flank pain, right side (principal); R91.1 Solitary pulmonary nodule; I10 Essential (primary) hypertension; E11.9 Type 2 diabetes mellitus without complications; J45.909 Unspecified asthma, uncomplicated; Z90.49 Acquired absence of other specified parts of digestive tract; Z87.442 Personal history of urinary calculi
CPT/HCPCS: 99285; 74176; 80048; 85025; 87086; 81001; 36415; 96372; J1885